=== PATIENT | male | born 1980 | race African-American/Black ===

== ENCOUNTER 2018-01-31 22:35 | Emergency (ER) | payer OTHER ==
[~2018-01-31] VITALS: Ht 190.5 cm; Wt 81.7 kg
[~2018-01-31 22:35] MED LIST: IBUPROFEN 800800 MG PO
[2018-01-31 23:06] LABS: ABSOLUTE EOSINOPHILS 0.2 thou/uL (0.0-0.7); ABSOLUTE LYMPHOCYTES 2.8 thou/uL (0.8-5.3); ABSOLUTE MONOCYTES 0.6 thou/uL (0.0-1.2); ABSOLUTE NEUTROPHILS 4.3 thou/uL (1.6-8.1); BASOPHILS 0.4 %; EOSINOPHILS 2.6 %; HEMATOCRIT 44.3 % (42.0-52.0); HEMOGLOBIN 14.9 gm/dL (14.0-18.0); LYMPHOCYTES 34.9 %; MCH 29.7 pg (26.0-34.0); MCHC 33.7 g/dL (28.0-37.0); MCV 88.1 fL (80.0-100.0); MONOCYTES 8.1 %; MPV 7.9 fl. (7.2-11.1); NUCLEATED RBCS 0 /100WBC; PLATELET COUNT* 210 thou/uL (150-400); RBC 5.03 mil/uL (4.50-6.00); RDW-CV 12.9 % (10.5-14.5)
[2018-01-31 23:15] LABS: URINE BILIRUBIN NEGATIVE (Negative); URINE BLOOD NEGATIVE (Negative); URINE CLARITY CLEAR; URINE COLOR YELLOW; URINE GLUCOSE-RANDOM NEGATIVE (Negative); URINE KETONES NEGATIVE (Negative); URINE LEUKOCYTES-REFLEX NEGATIVE (Negative); URINE NITRITE-REFLEX NEGATIVE (Negative); URINE PROTEIN NEGATIVE (Negative); URINE SPECIFIC GRAVITY <= 1.005 (1.005-1.030); URINE UROBILINOGEN 0.2 E.U./dl (0.2-1.0)
[2018-01-31 23:22] LABS: ANION GAP 7 mmol/L (7-16); BUN 16 mg/dL (7-18); CALCIUM 9.2 mg/dL (8.5-10.1); CHLORIDE 103 mmol/L (98-107); CO2 29 mmol/L (21-32); CREATININE 1.1 mg/dL (0.6-1.3); GLUCOSE 93 mg/dL (70-99); POTASSIUM 3.5 mmol/L (3.5-5.1); SODIUM 139 mmol/L (136-145)
[2018-01-31 23:29] LABS: ALBUMIN 4.3 g/dL (3.4-5.0); ALKALINE PHOSPHATASE 98 U/L (46-116); LIPASE 226 U/L (73-393); SGOT 18 U/L (15-37); SGPT 30 U/L (30-65); TOTAL BILIRUBIN 0.4 mg/dL (<0.1-1.0); TOTAL PROTEIN 7.9 g/dL (6.4-8.2); TROPONIN-I LEVEL <0.06 ng/mL (<0.06)
[2018-02-01 00:23] VITALS: BP 129/81
--- NOTE | 2018-02-01 12:43 | EKG ---
[place] [address] ELECTROCARDIOGRAM REPORT Name: FREDDY WISEMANCheo FAULKNERO [id number] Admission: 01/31/18 Attend Phys: Discharge: 02/01/18 Date of : 80 Report #: [id number] THIS REPORT FOR: //name// [facility] ED Test Date: 2018-01-31 Test Time: 22:40:15 Pat Name: JANEEN WISEMAN Department: Room: Gender: M [employer] Expert: JOSUE : 1980 Requested By: Anuja Schofield Order Number: [id number] MD: Prashanth Thomas Measurements Intervals [place] Rate: 78 P: 86 [place]: 173 QRS: 67 QRSD: 97 T: 46 QT: 365 QTc: 416 Interpretive Statements Sinus rhythm Probable left atrial enlargement RSR' in V1 or V2,. No previous ECG available for comparison Electronically Signed On 02-01-2018 12:43:33 CDT by Prashanth Thomas [email or web address] <ELECTRONICALLY SIGNED> By: Prashanth Thomas MD, [facility] 02/01/18 1243 2240 2240 Prashanth Thomas MD, FACC /EPI
== END 2018-02-01 00:24 | disposition home or self-care (01) ==
LOC: M.ERS 22:35
PROVIDERS: Emergency Medicine
DX: R07.89 Other chest pain (principal); J45.909 Unspecified asthma, uncomplicated